=== PATIENT | male | born 1950 | race Caucasian/White ===

== ENCOUNTER → 2018-02-14 | Outpatient (CLI) | payer OTHER ==
[~2018-02-14] MED LIST: ALTACE10 MG PO; AMITRIPTYLINE H25 M2 PO; FLOMAX0.4 MG PO; HYDROCHLOROTH12.5 M1 PO; NORCO 10-325 T1 EACH PO; XANAX 0.5 MG0.5 MG PO
--- NOTE | ~2018-02-14 | EKG ---
[address] [address] ELECTROCARDIOGRAM REPORT Name: ROMINA JOSEPH Room #: REG [facility]#: [id number] Admission: 02/14/18 Attend Phys: Rosendo Randolph MD Discharge: Date of : 48 Report #: [id number] THIS REPORT FOR: //name// [facility] Test Date: 2018-02-14 Test Time: 11:29:26 Pat Name: ROMINA JOSEPH Department: Room: Gender: [employer]: MARISOL : 1950 Requested By: Rosendo Randolph Order Number: [id number] MD: Feliz Phillips Measurements Intervals [place] Rate: 93 P: 53 [place]: 144 QRS: 49 QRSD: 96 T: 19 QT: 367 QTc: 457 Interpretive Statements Sinus rhythm Normal tracing No previous ECG available for comparison Electronically Signed On 02-15-2018 7:48:41 CDT by Feliz Phillips [email or web address] <ELECTRONICALLY SIGNED> By: Feliz Phillips MD, [facility] 02/15/18 [id number] Feliz Phillips MD, FAC /EPI
== END | disposition home or self-care (01) ==
LOC: LITH 11:07
DX: N20.0 Calculus of kidney (principal); I10 Essential (primary) hypertension; N40.0 Benign prostatic hyperplasia without lower urinary tract symptoms; F41.9 Anxiety disorder, unspecified; Z85.038 Personal history of other malignant neoplasm of large intestine; Z98.0 Intestinal bypass and anastomosis status; Z90.49 Acquired absence of other specified parts of digestive tract; Z98.890 Other specified postprocedural states; Z98.52 Vasectomy status; Z88.8 Allergy status to other drugs, medicaments and biological substances; Z79.899 Other long term (current) drug therapy